=== PATIENT | female | born 1980 | race Hispanic/Latino ===

== ENCOUNTER → 2019-08-06 | Day surgery (SDC) | payer OTHER ==
--- NOTE | 2019-08-05 12:44 | Diagnostic Imaging Report ---
EXAM: Abdomen Radiograph 1 View(s) INDICATION: ^ ORDER ^[id number] ^1204 ^PRE ADMIT COMPARISON: None FINDINGS: The bowel gas pattern is nonspecific. Moderate formed stool within the colon. 9 mm calcific density in the expected location of the left renal pelvis. Small calcific densities project over the left renal lower pole, largest 4 mm. Pelvic phleboliths. No acute osseous abnormality. Probable calcified granuloma of the right lung base. IMPRESSION: 9 mm calcific density in the expected location of the left renal pelvis consistent a renal calculus. Small intrarenal calculi of the left renal lower pole. Signed by: Alon Lizarraga MD on 08/05/2019 12:42 PM
[~2019-08-06] MED LIST: DEXAMETHASONE SOD PHOS INJ 4 MG/ML VIAL ONE; FENTANYL CITRATE/PF 100MCG/2 ML INJ ONE; LEVOFLOXACIN 500MG/D5W 100ML 100 ML IV ONE; LIDOCAINE HCL 2% LOCAL INJ 5 ML SDV VIAL INJ ONE; MIDAZOLAM HCL 2 MG/2 ML VIAL ONE; ONDANSETRON HCL INJ 2MG/ML 2ML 2 MG/ML VIAL ONE; PROPOFOL IV EMULSION 10 MG/ML 20 ML VIAL ONE; SEVOFLURANE INHAL SOLN 250 ML PEN BTL ONE
--- OUTSIDE RECORDS SUMMARY | 2019-08-06 05:53 | XMS REPORT ---
Author Author [facility], [place] Address Unknown Phone Unavailable Care Team Providers Care Ore Crusher Name Role Phone PARUL BENITEZ Unavailable Unavailable Problems This patient has no known problems. Allergies, Adverse Reactions, Alerts This patient has no known allergies or adverse reactions. Medications This patient has no known medications. Results Test Description Test Time Test Comments Text Results Atomic Results Result Comments ABDOMEN-1VIEW ([facility]) 2019-08-05 12:39:00 [place] [address] Patient Name: ILDA GARCIA MR #: [id number] : 1980 Age/Sex: 39/F Req #: [id number] Adm Physician: Ordered by: PARUL BENITEZ MD Report #: [id number] Location: OR Room/Bed: Procedure: [id number] DX/ABDOMEN-1VIEW ([facility]) Exam Date: 08/05/19 Exam Time: 1204 REPORT STATUS: Signed EXAM: Abdomen Radiograph 1 View(s) INDICATION: ORDER [id number] PRE ADMIT COMPARISON: None FINDINGS: The bowel gas pattern is nonspecific. Moderate formed stool within the colon. 9 mm calcific density in the expected location of the left renal pelvis. Small calcific densities project over the left renal lower pole, largest 4 mm. Pelvic phleboliths. No acute osseous abnormality. Probable calcified granuloma of the right lung base. IMPRESSION: 9 mm calcific density in the expected location of the left renal pelvis consistent a renal calculus. Small intrarenal calculi of the left renal lower pole. Signed by: Sarah Naylor MD on 08/05/2019 12:42 PM Dictated By: SARAH NAYLOR MD 124 Transcribed By: EMILIA on 08/05/191241 COPY TO: PARUL BENITEZ MD
[2019-08-06 08:20] VITALS: BP 125/82
--- NOTE | 2019-08-06 19:54 | Operative Report ---
DATE OF PROCEDURE: 08/06/2019 SURGEON: Pato Levy MD PREOPERATIVE DIAGNOSES: Left 8 mm UPJ stone. POSTOPERATIVE DIAGNOSIS: Left 8 mm UPJ stone. PROCEDURE: 1. Staged shock looks left side. 2. Supervision of fluoroscopy. ANESTHESIA: General. ESTIMATED BLOOD LOSS: Minimal. COMPLICATION: None. INDICATIONS: Ms. Do is a very pleasant 39-year-old female with a history of a symptomatic left-sided proximal ureteral stone. She and I had a long discussion alternatives risks rest nothing shock lips ureteroscopy percutaneous surgery or open surgery. We also had a marky discussion regarding the stent. She declined stent. She voiced understanding the options, alternatives, risks, and benefits, and elected to proceed. PROCEDURE IN DETAIL: After informed consent was obtained, the patient was taken to the operative suite, placed supine on the operating table, underwent general anesthesia by the Anesthesia Service. Stone was localized in the X, Y, and Z planes. A total 3000 shocks were approximately seven seven. Liver stone. The patient tolerated procedure well, transferred to the recovery room in excellent condition, no untoward effects noted. Supervision of fluoroscopy: I was present for the entire procedure and supervised fluoroscopy. There was no radiologist present. Dosages per treatment report. Techniques utilized to minimize dosage to the patient were applied . Pato Levy MD ES/MODL /[id number]
== END | disposition home or self-care (01) ==
LOC: OR 05:43
PROVIDERS: ATTEND Urology
DX: N20.1 Calculus of ureter (principal); N20.0 Calculus of kidney; N13.30 Unspecified hydronephrosis; R35.1 Nocturia; I10 Essential (primary) hypertension; Z01.818 Encounter for other preprocedural examination; Z84.1 Family history of disorders of kidney and ureter
CPT/HCPCS: 50590; 74018; 81025 ×2; J1100; J1956; J2001; J2250; J2405; J2704; J3010

== ENCOUNTER → 2020-06-23 | Day surgery (SDC) | payer OTHER ==
[~2020-06-23] MED LIST changes: +CEFTRIAXONE SOD 1 GM/NS 50 ML 50 ML IV ONE; -FENTANYL CITRATE/PF 100MCG/2 ML INJ ONE; -LEVOFLOXACIN 500MG/D5W 100ML 100 ML IV ONE; +METOCLOPRAMIDE HCL 10 MG/2ML VIAL ONE; -MIDAZOLAM HCL 2 MG/2 ML VIAL ONE; +MULTI-VITAMIN1 EACH PO; +VITAMIN D250 MCG PO
[2020-06-23 08:45] VITALS: BP 128/82
== END | disposition home or self-care (01) ==
LOC: OR 05:25
PROVIDERS: ATTEND Urology
DX: N20.0 Calculus of kidney (principal); N39.0 Urinary tract infection, site not specified; N13.30 Unspecified hydronephrosis; R35.1 Nocturia; I10 Essential (primary) hypertension; Z01.812 Encounter for preprocedural laboratory examination; Z01.818 Encounter for other preprocedural examination; Z20.822 Contact with and (suspected) exposure to COVID-19; Z84.1 Family history of disorders of kidney and ureter
CPT/HCPCS: 50590; 74018; 81025; J0696; J1100; J2001; J2405; J2704; J2765; U0002

== ENCOUNTER → 2020-10-18 | Outpatient (CLI) | payer OTHER ==
[~2020-10-18] MED LIST changes: -CEFTRIAXONE SOD 1 GM/NS 50 ML 50 ML IV ONE; -DEXAMETHASONE SOD PHOS INJ 4 MG/ML VIAL ONE; -LIDOCAINE HCL 2% LOCAL INJ 5 ML SDV VIAL INJ ONE; -METOCLOPRAMIDE HCL 10 MG/2ML VIAL ONE; -ONDANSETRON HCL INJ 2MG/ML 2ML 2 MG/ML VIAL ONE; -PROPOFOL IV EMULSION 10 MG/ML 20 ML VIAL ONE; -SEVOFLURANE INHAL SOLN 250 ML PEN BTL ONE
== END ==
LOC: RAD 10:02
PROVIDERS: ATTEND Urology
DX: N20.0 Calculus of kidney (principal)
CPT/HCPCS: 36415; 74018; 81025